=== PATIENT | male | born 1960 | race Asian ===

== ENCOUNTER 2024-10-28 10:31 | Outpatient (CLI) | payer BC ==
[~2024-10-28 10:31] MED LIST: Magnevist 469MG/ML 20 ML VIAL ONE
== END 2024-10-28 10:32 | disposition home or self-care (01) ==
LOC: CSHMRI 10:31
PROVIDERS: ATTEND Urology
DX: R97.20 Elevated prostate specific antigen [PSA] (principal)
CPT/HCPCS: 72197; 82565